=== PATIENT | male | born 2000 | race Caucasian/White ===

== ENCOUNTER 2025-04-16 11:45 | Emergency (ER) | payer OTHER ==
[~2025-04-16] VITALS: Ht 185.4 cm; Wt 84.7 kg
[2025-04-16] MEDS ORDERED: ISOVUE-370 76% 100 ML VIAL As Ordered ONE (15:31)
[2025-04-16] MEDS: PROPARACAINE 0.5% OPHTH SOL 15ML OD ONE (16:07)
[2025-04-16 16:45] VITALS: BP 116/59; O2SAT 100
[2025-04-16] MEDS ORDERED: IBUP600T42 PO (16:46)
[2025-04-16 16:50] VITALS: TEMP 97.1
== END 2025-04-16 16:57 | disposition home or self-care (01) ==
LOC: M ED 11:45
DX: G43.109 Migraine with aura, not intractable, without status migrainosus (principal); F10.10 Alcohol abuse, uncomplicated; Z79.1 Long term (current) use of non-steroidal anti-inflammatories (NSAID)
CPT/HCPCS: 36415; 70450; 70496; 80047; 99284; Q9967